=== PATIENT | male | born 1945 | race Caucasian/White ===

== ENCOUNTER 2022-07-05 09:01 | Outpatient (CLI) | payer MEDICARE, OTHER ==
[2022-07-05 10:02] LABS: ESTIMATED AVERAGE GLUCOSE 111 mg/dL (70-100); HEMOGLOBIN A1c% 5.5 % (4.27-6.07)
[2022-07-05 12:00] LABS: FOLATE > 49.60 ng/mL (5.90 - >24.8)
== END 2022-07-05 09:02 | disposition home or self-care (01) ==
LOC: LAB 09:01
PROVIDERS: ATTEND Psychiatry & Neurology Neurology
DX: I67.89 Other cerebrovascular disease (principal); R79.9 Abnormal finding of blood chemistry, unspecified; G95.9 Disease of spinal cord, unspecified
CPT/HCPCS: 36415; 82525; 82607; 82746; 83036; 83921